=== PATIENT | female | born 1995 | race Hispanic/Latino ===

== ENCOUNTER 2021-12-06 12:41 | Emergency (ER) | payer OTHER | END 2021-12-06 13:11 | disposition home or self-care (01) | LOC: NAV ERS 12:41 | DX: O9A.212 Injury, poisoning and certain other consequences of external causes complicating pregnancy, second trimester (principal); S50.311A Abrasion of right elbow, initial encounter; O99.891 Other specified diseases and conditions complicating pregnancy; M54.50 Low back pain, unspecified; W01.198A Fall on same level from slipping, tripping and stumbling with subsequent striking against other object, initial encounter; Y92.89 Other specified places as the place of occurrence of the external cause; Z3A.24 24 weeks gestation of pregnancy | CPT/HCPCS: 99283 ==